=== PATIENT | male | born 1995 | race Caucasian/White ===

== ENCOUNTER 2017-05-06 23:37 | Emergency (ER) | payer SELFPAY ==
[~2017-05-06] VITALS: Ht 175.3 cm; Wt 95.3 kg
[~2017-05-06 23:37] MED LIST: LORTAB 5/500 501 TAB PO; NOMEDS; ULTRAM50 MG PO
[2017-05-06 23:39] VITALS: BP 166/104
[2017-05-07 00:03] LABS: HEMOGLOBIN 16.7 g/dL (14.1-18.0); LYMPH # 4.5 K/mm3 (0.7-4.5); LYMPH % 46.8 % (10-50)
--- OUTSIDE RECORDS SUMMARY | 2017-05-31 16:52 | External Medical Summary Rpt ---
Author Author , JOSELUIS Organization [employer] Address Unknown Phone [email or web address] Care Team Providers Care Wire Mesh Knitter Name Role Phone VERITO ZIMMERMAN, Unavailable Unavailable VERITO ZIMMERMAN CHRISTINA L, Unavailable Unavailable ANGELO RIOS MICHAEL A, Unavailable Unavailable SERGIO LEGER BRANDON T, Unavailable Unavailable NADIA MARKS, TERESITA Unavailable Unavailable GRE LOR MASSEY Unavailable Unavailable R, BRYSON HARIGOVINDA R NESHA ZENON, Unavailable Unavailable NESHA ZENON [facility], [employer], [employer] Unavailable Unavailable [facility] CRISTIN L[facility]P. Unavailable Unavailable GENE MIGUEL, FOSTER Unavailable Unavailable IVONNE GORDON Unavailable Unavailable [facility] Unavailable Unavailable CENTER, [facility] Unavailable Unavailable CENTER, [facility] Unavailable Unavailable INC, [facility] Unavailable Unavailable [facility] TAMIKO, DANNY, TAMIKO, Unavailable Unavailable [facility] Unavailable Unavailable [facility], [facility] BLAINE PALACIOS, , Unavailable Unavailable [facility] Un[facility], Unavailable Unavailable [facility] MITCHELL KILLIAN, Unavailable Unavailable MITCHELL KILLIAN GRE, Unavailable Unavailable DANIA GRE DANIA GRE, Unavailable Unavailable DANIA GRE [facility] Unavailable Unavailable SERVICES, [facility] Unavailable Unavailable SERVICES, [facility] ANNIKA ADDISON, Unavailable Unavailable ANNIKA ADDISON JOHN M, Unavailable Unavailable HALIE CARIAS RONALD L, Unavailable Unavailable OLENA WILSON DENIS DARRION, DENIS Unavailable Unavailable DARRION DENISCARLTON MAIER DENIS Unavailable Unavailable DARRION PETYARIEL MIGUEL PETTELisa Unavailable Unavailable [id number], Unavailable Unavailable [id number] Unavailable Unavailable [id number] [address] [id number], [facility] [id number] # [id number] ROSELYN CHAVEZ, Unavailable Unavailable ROSELYN CHAVEZ MARIA, Unavailable Unavailable DELPHINE GOLD [facility], Unavailable Unavailable [facility], Unavailable Unavailable YAEL ROSE [facility] Unavailable Unavailable #591, [facility] Purpose Continuity of Care Document - 08-04-2009 through 2016 Problems Code Diagnosis DOS Provider Status V5409 OTH 12-25-2014 [facility] INTERNAL FIXATION DEVICE V5489 OTHER 12-25-2014 [facility] AFTERCARE 74840 CLOSED 12-11-2014 [facility] OTHER&UNSPE C PART BODY MANDIBLE 21837 CLOSED 12-10-2014 [facility] OF SERV MULTIPLE FOUNDATION SITES OF MANDIBLE 25630 JAW PAIN 12-09-2014 [facility] 76831 CLOSED 12-09-2014 [place] FRA[facility]URE OF MEDICAL IMAGING ASS UNSPECIFIED SITE OF MANDIBLE 8028 OTHER 12-09-2014 [place] FACIAL [facility] BONES [facility] CLOSED FRACTURE 8082 CLOSED 12-09-2014 [place] FRA[facility]URE OF MEDICAL PUBIS [facility]ING [facility] 920 CONTUSION 12-09-2014 [place] OF [facility]ACE [facility] SCALP AND IMAGING ASS NECK EXCEPT EYE 85827 OTHER FOOT 01-05-2012 [facility] 92036 PAIN IN 11-01-2011 [place] JOINT, MEDICAL FOREARM [facility] 08227 SPRAIN AND 11-01-2011 [facility] STRAIN OF [facility] UNSPECIFIED INC SITE OF WRIST 9593 INJURY 11-01-2011 [facility] OTHER&UNSPE EMERGENCY CIFIED SERVICES [facility]OW FOREARM&WRI ST 9599 INJURY 11-01-2011 [place] OTHER AND MEDICAL UNSPECIFIED IMAGING ASS UNSPECIFIED SITE V069 NEED PROPH 10-07-2011 [facility] VACCINATION HEALTH W/UNSPEC CENTER COMB VACCINE 23065 FEVER 06-18-2010 [place] UNSPECIFIED [facility]ING [facility] 00348 NAUSEA WITH 06-18-2010 [facility] 21803 ABDOMINAL 06-18-2010 [facility] PAIN, EMERGENCY UNSPECIFIED SERVICES SITE 28072 ABDOMINAL 06-18-2010 [facility] PAIN, [facility] GENERALIZED INC 5368 DYSPEPSIA&O 06-13-2010 ADEEL MAIER THER SPEC DISORDERS FUNCTION STOMACH 3671 MYOPIA 06-10-2010 [facility] GRE 51713 SPRAIN AND 11-17-2009 [place] [facility] STR[facility] OF SERV INTERPHALAN FOUNDATIO GEAL OF HAND 15604 UNSPECIFIED 10-28-2009 [facility] DERANGEMENT OF HAND JOINT V5849 OTHER 10-28-2009 [place] [facility] SPECIFIED SERV AFTERCARE FOUNDATIO FOLLOWING SURGERY V5412 AFTERCARE 10-03-2009 [place] [facility] TRAUMATIC [facility]OUND[facility] FRACTURE LOWER ARM 68519 OTHER ACUTE 08-20-2009 [place] [facility] POSTOPERATI [facility]OUND[facility] VE PAIN 67998 OTHER 08-20-2009 [place] [facility] CLOSED SERV FRACTURES FOUNDATIO OF DISTAL END OF RADIUS 34195 CLOSED 08-18-2009 [facility] FRACTURE OF OF [facility] OF RADIUS WITH ULNA E8849 OTHER 08-04-2009 [place] [facility] ACCIDENTAL [facility] FALL FROM FOUNDATIO ONE LEVEL TO ANOTHER V537 FITTING AND 08-04-2009 [place] [facility] ADJUSTMENT [facility] OF [facility]OUNDATIO ORTHOPEDIC DEVICE Z53.20 PROC/TRTMT NOT CRD OUT BEC PT DECISION FOR UNSP REASONS Medications Na ND Rx Da Fi Fi Am Da Di Ph RX Ph St me C No te ll ll ou ys ag ar # ys at rm s nt no ma ic us Or Da si cy ia de te s n re d RA 00 10 10 60 30 RI 85 FO Ac NI 17 -2 -[address] ti TI 24 8- 8- 00 57 ER ve DI 35 20 20 AI NE 74 10 10 D JA 9 PH ME 15 AR S 0 MA M MG CY TA 03 BL 93 ET 8 # 03 93 ON 68 10 10 1 12 30 RI 85 FO Ac DA 46 -2 -[address] ti NS 20 8- 8- 00 58 ER ve ET 15 20 20 AI RO 71 10 10 D JA N 3 PH ME OD AR S T MA M 4 CY MG 03 TA 93 BL 8 ET # 03 93 00 03 03 60 10 RI 82 HO Ac 40 -0 -0 .0 TE 47 RS ti 60 9- 9- 00 21 TM ve 35 20 20 AI AN 80 10 10 D N 1 PH KAYE AR AN MA NA CY 03 93 8 # 03 93 CE 00 02 02 00 40 10 RI 82 OW Ac PH 14 -1 -2 .0 TE 12 EN ti AL 39 2- 6- 00 64 S ve EX 89 20 20 AI KAYE IN 70 10 10 D SH 1 PH UA 50 AR B 0 M MG #3 93 CA 8 PS UL E 00 01 01 00 30 10 RI 81 BR Ac 40 -1 -2 .0 TE 74 UC ti 60 5- 8- 00 26 E ve 35 20 20 AI BR 70 10 10 D AN 5 PH DO AR N M T #3 93 8 00 12 01 00 41 10 RI 81 BR Ac 40 -3 -1 .0 TE 52 UC ti 60 0- 4- 00 73 E ve 35 20 20 AI BR 80 09 10 D AN 1 PH DO AR N M T #3 93 8 OX 00 12 12 00 40 3 WA 22 No Ac YC 40 -1 -3 .0 L- 17 t ti OD 60 4- 1- 00 MA 17 Av ve ON 51 20 20 RT 8 ai E- 20 09 09 la AC 1 PH bl ET AR e AM MA IN CY OP HE #5 N 91 5- 32 5 Immunization Name Date Rout CVX Reac Dose Comm Prov Is Faci e tion ent ider Refu lity Give sed n MCV4 02- 114 Meni RENE No RENE 6-20 brett DELFINA DELFINA ALCANTARA 12 occu CO CO CWY s HEAL HEAL CONJ vacc TH TH ine CENT CENT VACC admi ER ER nist GRPS ered ; ACYW form -135 ulat IM ion USE not spec ifie d. MCV4 02- 136 Meni RENE No RENE 6-20 brett DELFINA DELFINA ALCANTARA 12 occu CO CO CWY s HEAL HEAL CONJ vacc TH TH ine CENT CENT VACC admi ER ER nist GRPS ered ; ACYW form -135 ulat IM ion USE not spec ifie d. NIXON 02- 21 RENE No RENE VACC 6-20 DELFINA DELFINA INE 12 CO CO LIVE HEAL HEAL FOR TH TH CENT CENT SUBC ER ER UTAN EOUS USE Procedures Procedure DOS Code Location Performer Comment ORTHOPANT 90356 [facility] 5 Y Y [facility] OPTX COMP 04050 CHAI YAEL 5 MEDICAL ROSE [place] SERV R FX CALL CENTER SPECIALIST FOUNDATIO APPR N W/INT FIXATION ANESTHESI 56598 CHAI TERESITA A FACIAL 5 MEDICAL GRE BONES OR SERVICES SKULL NOS RADEX 89534 [facility] 5 MEDICAL ZENON BONES IMAGING COMPLETE ASS MINIMUM 3 VIEWS ORTHOPANT 71018 [facility] OGRAM 5 [place]ICAL [place] [address] [place] NESHA MAXILLOFA 5 MEDICAL ZENON CIAL W/O IMAGING CONTRAST ASS MATERIAL RADIOLOGI 79983 [place] NESHA C 5 MEDICAL ZENON EXAMINATI IMAGING ON ASS MANDIPLE PRTL <4 VIEWS RADEX 82676 [facility] WRIST 2 MEDICAL MEDICAL COMPLETE IMAGING IMAGING MINIMUM 3 ASS ASS VIEWS WRIST L3908 [facility] 2 ORTHOSIS EXT CONTROL COCK-UP PREFAB NIXON 57829 [facility] VACCINE 2 [facility] CENTER SUBCUTANE OUS USE MCV4 93790 [facility] MENACWY 2 [facility] VACC CENTER CENTER GRPS ACYW-135 IM USE URNLS DIP 50606 [facility] STICK/TAB INC INC LET REAGENT AUTO MICROSCOP Y BLOOD 82024 [facility] COUNT 0 [facility] COMPLETE INC INC AUTO&[place] [address] [facility] AMYLASE 0 [place] [address] [facility] LIPASE 0 [facility] INC INC COMPREHEN 66891 [facility] SIVE 0 [facility] METABOLIC INC INC PANEL RADIOLOGI 29482 [place] NESHA C EXAM 0 MEDICAL ZENON CHEST 2 IMAGING VIEWS ASS FRONTAL&L ATERAL DETERMINA 33579 [facility] TION 0 GRE GRE REFRACTIV E STATE OPHTH 10920 [facility] 0 GRE GRE XM&EVAL COMPRE NEW PT 1/> VST WRIST L3807 [facility] HAND 0 FINGR ORTHOS W/O JNT PREFAB CSTM FIT APPLICATI 18537 CHAI CHAVEZ, ON CAST 0 MEDICAL ROSELYN ELBOW SERV A FINGER FOUNDATIO SHORT ARM SINGLE 67728 [place] CONSTANTIN NERVE 0 MEDICAL MITCHELL C BLOCK SERV INJECTION FOUNDATIO ARM NERVE INJECTION J1885 [facility] UNIVERSIT 0 Y Y KETOROLAC [facility] TROMETHAM INE PER [address] IN[address] [facility] FENTANYL 0 Y Y CITRATE [facility] 0.[address] [facility] TRNSPLJ/T 0 Y Y R [facility] FLXR/XTNS R F/ARM&/WR ST 1 EA TDN TR/TRNSPL 84584 [place] KATHY, TDN 0 MEDICAL ROSELYN CARP/MTCR SERV A PL HAND FOUNDATIO W/O FR GRF EA TDN INJECTION J2405 [facility] 0 Y Y [facility] ON HCL PER [address] IN[address] [facility] 0 Y Y [facility] NE HYDROCHLO RIDE [address] IN[address] [facility] 0 Y Y CEFAZOLIN [facility] SODIUM [address] IN[address] [facility] 0 Y Y MIDAZOLAM [facility] HCL PER [address] [facility] LACTATE 0 Y Y INFUSION [facility] UP TO 1000 CC ANES 83333 [place] JULIANE, NERVE 0 MEDICAL ANGELO MUSCLE SERVICES L TDN FASCIA&BU RSA FOREARM WRIST RADEX 39991 [place] BRYSON, WRIST 2 0 MEDICAL HARJACKIEVIN VIEWS SERV DA R FOUNDATIO INJECTION J2550 [facility] 9 Y Y [facility] H[facility] UP TO [address] [facility] RAD 9 Y Y X-ARTIC [facility] FX/EPIPHY SL SEP FLUOROSCO 99606 [facility] PY SPX >1 9 Y Y HOUR [facility] PHYS/QHP TIME INJECTION J0170 [facility] 9 Y Y ADRENALIN [facility] EPINEPHRI NE UP 1 ML AMPULE INJECTION J0330 [facility] 9 Y Y SUCCINYLC [facility] HOLINE CHLORIDE UP TO [address] IN[address] [facility] 9 Y Y [facility] ON HCL PER 1 MG ANES 18335 [place] TAMIKO, ARTHRS/EN 9 MEDICAL DAQUAN-PASHTO DSCPY SERVICES DSTL RADIUS ULNA/WRIS T/HAND INJECTION J3010 [facility] FENTANYL 9 Y Y CITRATE [facility] 0.1 MG INJECTION 35080 CHAI WILSON, 9 MEDICAL OLENA [place] ANESTHETI SERV C AGENT FOUNDATIO AXILLARY NERVE INITIAL 94998 CHAI WILSON, INPATIENT 9 MEDICAL OLENA [place] CONSULT SERV NEW/ESTAB FOUNDATIO PT [address] [facility] MORPHINE 9 Y Y SULFATE [facility] UP TO [address] [facility] 9 Y Y MIDAZOLAM [facility] HCL PER [address] IN[address] [facility] ATROPINE 9 Y Y SULFATE [facility] UP TO 0.[address] [facility] 9 Y Y CEFAZOLIN [facility] SODIUM [address] IN[address] [facility] 9 Y Y ROPIVACAI [facility] NE HYDROCHLO RIDE [address] [facility] [place] ELSIE, WRIST 2 9 Y OF [facility] RADEX [address] [facility] [place] ELSIE, WRIST 2 9 Y OF [facility] APPLICATI 78860 CHAI ADDISON ON CAST 9 MEDICAL ANNIKA SHOULDER SERV HAND LONG FOUNDATIO ARM RADEX 69856 [place] PHILIP, WRIST 9 MEDICAL BLAINE [place] COMPLETE SERV MINIMUM [address]OUNDAT[facility] [address] [facility] PROPH/DX 9 Y Y NJX IV HOSPITAL HOSPITAL PUSH SINGLE/1S T SBST/DRUG MODERATE 30607 SAMIRA SALCEDO 9 EMERGENCY HALIE [facility] SAME SERVICES PHYS/QHP 5/>YRS ASSOCIATE INIT 30 S MIN RADEX 73400 [place] PHIL[place], HAND 9 KILLIAN [place] MINIMUM 3 SERV VIEWS FOUNDATIO RHYTHM 65074 DANIA CARIAS ECG 1-3 9 EMERGENCY HALIE [employer] LEADS SERVICES INTERPRET ATION & ASSOCIATE REPRT ON S CLTX DSTL 93950 DANIA CARIAS RDL 9 EMERGENCY HALIE [place] FX/EPIPHY SERVICES SL SEP W/MANJ ASSOCIATE WHEN PERF S RADEX 01300 [facility] FOREARM 2 9 Y Y VIEWS [facility] RADEX 63498 [place] LEGER, WRIST 9 MEDICAL JOSELITO COMPLETE SERV MINIMUM 3 FOUNDATIO VIEWS NONINVASI 57364 [facility] VE 9 Y Y EAR/PULSE [facility] OXIMETRY SINGLE DETER Encounters Encounter Start End Date Code Location Performer Type Date [facility] UNIVERS - 5 5 Y [facility] T OFFICE [address] [facility] 5 5 MEDICAL GOGO T NEW SERV MINUTES FOUNDATIO N OFFICE 63543 [facility]ERN [facility] 2 2 [facility] MINUTES EMERGENCY 47349 FERN 2 2 MEM HOSP DEPARTMEN INC T VISIT LOW/MODER SEVERITY HOSPITAL FERN - [address] [facility] OUTPATIEN [facility] T EMERGENCY 29347 DANIA NAJERA 2 2 EMERGENCY EMERGENCY DEPARTMEN SERVICES SERVICES T VISIT HIGH/URGE NT SEVERITY EMERGENCY 64554 DANIA MILLS DEPT 0 0 EMERGENCY JAM VISIT SERVICES HIGH SEVERITY& THREAT [facility] FERN - [address] [facility]EN [facility] T EMERGENCY [address] [facility] DEPARTMEN INC T VISIT MODERATE SEVERITY OFFICE [address] [facility] 0 0 DARRION MAIER T VISIT 15 MINUTES HOSPITAL UNIVERSIT - 0 0 Y [facility] T OFFICE 03526 CHAI CHAVEZ OUTPATIEN 0 0 MEDICAL ROSELYN T VISIT SERV A 15 FOUNDATIO [facility] UNIVERSIT - 0 0 Y [facility] UNIVERS[facility] - 0 0 Y [facility] UNIVERSIT - 9 9 Y [facility] UN[facility] - 9 9 Y [facility] T OFFICE 47293 [facility]ON [facility] 9 9 ANNIKA DAILY VISIT SERV 10 FOUNDATIO MINUTES OFFICE 86703 CHAI ADDISON CONSULTAT 9 9 MEDICAL ANNIKA ION SERV NEW/ESTAB FOUNDATIO PATIENT [address] [facility] [place] - 9 9 Y [facility] T HOSPITAL UNIVERSIT - 9 9 Y [facility] T EMERGENCY [address] [facility] [place] 9 9 Y [facility] T VISIT HIGH/URGE NT SEVERITY EMERGENCY 12330 DANIA CARIAS, DEPT 9 9 EMERGENCY [facility] VISIT SERVICES HIGH SEVERITY& ASSOCIATE THREAT S FUN EMERGENCY 98812 CHAI GOLD, 9 9 MEDICAL [facility] SERV T VISIT FOUNDATIO MODERATE SEVERITY
--- OUTSIDE RECORDS SUMMARY | 2017-05-31 16:52 | External Medical Summary Rpt ---
Author Author , JOSELUIS Organization [employer] Address Unknown Phone [email or web address] Care Team Providers Care Records Administrator Name Role Phone VERITO ZIMMERMAN, Unavailable Unavailable VERITO ZIMMERMAN CHRISTINA L, Unavailable Unavailable ANGELO RIOS MICHAEL A, Unavailable Unavailable SERGIO LEGER BRANDON T, Unavailable Unavailable NADIA MARKS, TERESITA Unavailable Unavailable GRE LOR MASSEY Unavailable Unavailable R, BRYSON HARIGOVINDA R NESHA ZENON, Unavailable Unavailable NESHA ZENON [employer] Unavailable Unavailable [facility] CRISTIN L[facility]P. Unavailable Unavailable GENE MIGUEL, FOSTER Unavailable Unavailable IVONNE GORDON Unavailable Unavailable [facility] Unavailable Unavailable CENTER, [facility] Unavailable Unavailable CENTER, [facility] Unavailable Unavailable INC, [facility] Unavailable Unavailable [facility], [facility] TAMIKO, DANNY, TAMIKO, Unavailable Unavailable [facility] Unavailable Unavailable IM[facility]ING [facility], [facility] BLAINE PALACIOS, , Unavailable Unavailable [facility] [place] [facility] Un[facility], Unavailable Unavailable [facility] MITCHELL KILLIAN, Unavailable Unavailable MITCHELL KILLIAN GRE, Unavailable Unavailable DANIA GRE DANIA GRE, Unavailable Unavailable DANIA GRE [facility] Unavailable Unavailable SERVICES, [facility] Unavailable Unavailable SERVICES, [facility] ANNIKA ADDISON, Unavailable Unavailable ANNIKA ADDISON JOHN M, Unavailable Unavailable HALIE CARIAS RONALD L, Unavailable Unavailable OLENA WILSON DENIS DARRION, DENIS Unavailable Unavailable DARRION DENISCARLTON MAIER DENIS Unavailable Unavailable DARRION PETYARIEL MIGUEL PETTELisa Unavailable Unavailable [id number], Unavailable Unavailable [id number] Unavailable Unavailable [id number] [address] [id number], [facility] [address] [address] [id number] ROSELYN CHAVEZ, Unavailable Unavailable ROSELYN CHAVEZ MARIA, Unavailable Unavailable DELPHINE GOLD [facility], Unavailable [facility]available [facility], Unavailable Unavailable YAEL ROSE [facility] Unavailable Unavailable #591, [id number] Purpose Continuity of Care Document - 08-04-2009 through 2016 Problems Code Diagnosis DOS Provider Status V5409 OTH 12-25-2014 [facility] INVOLVING [facility]OUNDATION INTERNAL FIXATION DEVICE V5489 OTHER 12-25-2014 [facility] AFTERCARE 15539 CLOSED 12-11-2014 [facility] FRACTURE SERVICES OTHER&UNSPE C PART BODY MANDIBLE 05034 CLOSED 12-10-2014 [facility] FRACTURE OF SERV MULTIPLE FOUNDATION SITES OF MANDIBLE 25837 JAW PAIN 12-09-2014 [facility] 21722 CLOSED 12-09-2014 [place] FRACTURE OF MEDICAL IMAGING ASS UNSPECIFIED SITE OF MANDIBLE 8028 OTHER 12-09-2014 [place] FACIAL [facility] BONES [facility] CLOSED FRACTURE 8082 CLOSED 12-09-2014 [place] FRACTURE OF MEDICAL PUBIS [facility] 920 CONTUSION 12-09-2014 [place] OF [facility] MEDICAL SCALP AND IMAGING ASS NECK EXCEPT EYE 79674 OTHER FOOT 01-05-2012 [facility] SPRAIN AND [facility] 36663 PAIN IN 11-01-2011 [place] JOINT, MEDICAL FOREARM IMAGING ASS 11951 SPRAIN AND 11-01-2011 [facility] STRAIN OF [facility] UNSPECIFIED INC SITE OF WRIST 9593 INJURY 11-01-2011 [facility] OTHER&UNSPE EMERGENCY CIFIED SERVICES [facility]&WRI ST 9599 INJURY 11-01-2011 [place] OTHER AND MEDICAL UNSPECIFIED IMAGING ASS UNSPECIFIED SITE V069 NEED PROPH 10-07-2011 [facility] VACCINATION HEALTH W/UNSPEC CENTER COMB VACCINE 46904 FEVER 06-18-2010 [place] UNSPECIFIED MEDICAL IMAGING ASS 85368 NAUSEA WITH 06-18-2010 [facility] 75317 ABDOMINAL 06-18-2010 [facility] PAIN, EMERGENCY UNSPECIFIED SERVICES SITE 95776 ABDOMINAL 06-18-2010 [facility] PAIN, [facility] GENERALIZED INC 5368 DYSPEPSIA&O 06-13-2010 ADEEL MAIER THER SPEC DISORDERS FUNCTION STOMACH 3671 MYOPIA 06-10-2010 [facility] GRE 05578 SPRAIN AND 11-17-2009 [place] [facility] STRAIN OF SERV INTERPHALAN FOUNDATIO GEAL OF HAND 32849 UNSPECIFIED 10-28-2009 [facility] DERANGEMENT OF HAND JOINT V5849 OTHER 10-28-2009 [place] [facility] SPECIFIED SERV AFTERCARE FOUNDATIO FOLLOWING SURGERY V5412 AFTERCARE 10-03-2009 [place] [facility] HEAL[facility] TRAUMATIC FOUNDATIO FRACTURE LOWER ARM 38765 OTHER ACUTE 08-20-2009 [place] [facility] POSTOPERATI FOUNDAT[facility] VE PAIN 31903 OTHER 08-20-2009 [place] [facility] CLOSED SERV FRACTURES FOUNDATIO OF DISTAL END OF RADIUS 99105 CLOSED 08-18-2009 [facility] FRACTURE OF OF [facility] OF RADIUS WITH ULNA E8849 [...] Procedure DOS Code Location Performer Comment ORTHOPANT 29111 [facility] 5 Y Y [facility] OPTX COMP 71095 CHAI YAEL 5 MEDICAL ROSE MANDIBULA SERV R FX GUIDE DOG INSTRUCTOR FOUNDATIO APPR N W/INT FIXATION ANESTHESI 39204 CHAI TERESITA A FACIAL 5 MEDICAL GRE BONES OR SERVICES SKULL NOS RADEX 91365 [facility] MEDICAL ZENON BONES IMAGING COMPLETE ASS MINIMUM 3 VIEWS ORTHOPANT 50145 [facility] OGRAM 5 [place]ICAL [place] [address] [place] NESHA MAXILLOFA 5 MEDICAL ZENON CIAL W/O IMAGING CONTRAST ASS MATERIAL RADIOLOGI 08076 [place] NESHA C 5 MEDICAL ZENON EXAMINATI IMAGING ON ASS MANDIPLE PRTL <4 VIEWS RADEX 56467 [facility] WRIST 2 MEDICAL MEDICAL COMPLETE IMAGING IMAGING MINIMUM 3 ASS ASS VIEWS WRIST L3908 [facility] HAND 2 ORTHOSIS EXT CONTROL COCK-UP PREFAB NIXON 41778 [facility] VACCINE 2 [facility] LIVE FOR CENTER CENTER SUBCUTANE OUS USE MCV4 09783 [facility] MENACWY 2 [facility] V[facility] CENTER GRPS ACYW-135 IM USE URNLS DIP 72194 [facility] 0 [facility] STICK/TAB INC INC LET REAGENT AUTO MICROSCOP Y BLOOD 11880 [facility] COUNT 0 [facility] COMPLETE INC INC AUTO&[place] [address] [facility] AMYLASE 0 [place] [address] [facility] LIPASE 0 [facility] INC INC COMPREHEN 73659 [facility] SIVE 0 [facility] METABOLIC INC INC PANEL RADIOLOGI 51857 [place] NESHA C EXAM 0 MEDICAL ZENON CHEST 2 IMAGING VIEWS ASS FRONTAL&L ATERAL DETERMINA 08579 [facility] TION 0 GRE GRE REFRACTIV E STATE OPHTH 34092 [facility] 0 GRE GRE XM&EVAL COMPRE NEW PT 1/> VST WRIST L3807 [facility] HAND 0 FINGR ORTHOS W/O JNT PREFAB CSTM FIT APPLICATI 92553 CHAI CHAVEZ, ON CAST 0 MEDICAL ROSELYN ELBOW SERV A FINGER FOUNDATIO SHORT ARM SINGLE 59405 [place] CONSTANTIN NERVE 0 MEDICAL MITCHELL C BLOCK SERV INJECTION FOUNDATIO ARM NERVE INJECTION J1885 UNIVERSIT UNIVERSIT 0 Y Y KETOROLAC [facility] TROMETHAM INE PER 15 MG INJECTION J3010 [facility] FENTANYL 0 Y Y CITRATE [facility] 0.1 MG TDN 49695 [facility] TRNSPLJ/T 0 Y Y R [facility] FLXR/XTNS R F/ARM&/WR ST 1 EA TDN TR/TRNSPL 09706 [place] KATHY, TDN 0 MEDICAL ROSELYN CARP/MTCR SERV A PL HAND FOUNDATIO W/O FR GRF EA TDN INJECTION J2405 [facility] 0 Y Y [facility] ON HCL PER 1 MG INJECTION J2795 [facility] 0 Y [facility] NE HYDROCHLO RIDE 1 MG INJECTION J0690 [facility] 0 Y Y CEFAZOLIN [facility] SODIUM 500 MG INJECTION J2250 [facility] 0 Y Y MIDAZOLAM [facility] HCL PER 1 MG RINGERS J7120 [facility] LACTATE 0 Y Y INFUSION [facility] UP TO 1000 CC ANES 92050 [place] JULIANE, NERVE 0 MEDICAL ANGELO MUSCLE SERVICES L TDN FASCIA&BU RSA FOREARM WRIST RADEX 95358 [place] BRYSON, WRIST 2 0 MEDICAL HARJACKIEVIN VIEWS SERV DA R FOUNDATIO INJECTION J2550 [facility] 9 Y [facility] IN[facility] H[facility] UP TO 50 MG OPTX DSTL 95324 [facility] RAD 9 Y Y X-ARTIC [facility] FX/EPIPHY SL SEP FLUOROSCO 02352 [facility] PY SPX >1 9 Y Y HOUR [facility] PHYS/QHP TIME INJECTION J0170 [facility] 9 Y Y ADRENALIN [facility] EPINEPHRI NE UP 1 ML AMPULE INJECTION J0330 [facility] 9 Y Y SUCCINYLC [facility] HOLINE CHLORIDE UP TO 20 MG INJECTION J2405 [facility] 9 Y Y [facility] ON HCL PER 1 MG ANES 18533 [place] TAMIKO, ARTHRS/EN 9 MEDICAL [place] DSCPY SERVICES DSTL RADIUS ULNA/WRIS T/HAND INJECTION J3010 [facility] FENTANYL 9 Y Y CITRATE [facility] 0.1 MG INJECTION 85532 CHAI WILSON, 9 MEDICAL OLENA [place] ANESTHETI SERV C AGENT FOUNDATIO AXILLARY NERVE INITIAL 75170 CHAI WILSON, INPATIENT 9 MEDICAL OLENA [place] CONSULT SERV NEW/ESTAB FOUNDATIO PT 40 MIN INJECTION J2270 [facility] MORPHINE 9 Y Y SULFATE [facility] UP TO 10 MG INJECTION J2250 [facility] 9 Y Y MIDAZOLAM [facility] HCL PER 1 MG INJECTION J0460 [facility] ATROPINE 9 Y Y SULFATE [facility] UP TO 0.3 MG INJECTION J0690 [facility] 9 Y Y CEFAZOLIN [facility] SODIUM 500 MG INJECTION J2795 [facility] 9 Y Y ROPIVACAI [facility] NE HYDROCHLO RIDE 1 MG RADEX 25962 [facility] ELSIE, WRIST 2 9 Y OF [facility] RADEX 56967 [facility] ELSIE, WRIST 2 9 Y OF [facility] APPLICATI 28979 CHAI ADDISON ON CAST 9 MEDICAL ANNIKA SHOULDER SERV HAND LONG FOUNDATIO ARM RADEX 58312 [place] PHIILP, WRIST 9 MEDICAL BLAINE [place] COMPLETE SERV MINIMUM 3 FOUNDATIO VIEWS THER 14681 [facility] PROPH/DX 9 Y Y NJX IV HOSPITAL HOSPITAL PUSH SINGLE/1S T SBST/DRUG MODERATE 67211 SAMIRA SALCEDO 9 EMERGENCY HALIE [facility] SAME SERVICES PHYS/QHP 5/>YRS ASSOCIATE INIT 30 S MIN RADEX 06791 [place] PHILIP, HAND 9 KILLIAN [place] MINIMUM 3 SERV VIEWS FOUNDATIO RHYTHM 38557 DANIA CARIAS ECG 1-3 9 EMERGENCY HALIE [place] LEADS SERVICES INTERPRET ATION & ASSOCIATE REPRT ON S CLTX DSTL 99274 DANIA CARIAS RDL 9 EMERGENCY HALIE [place] FX/EPIPHY SERVICES SL SEP W/MANJ ASSOCIATE WHEN PERF S RADEX 09247 [facility] FOREARM 2 9 Y Y VIEWS [facility] RADEX 75708 [place] LEGER, WRIST 9 MEDICAL JOSELITO COMPLETE SERV MINIMUM 3 FOUNDATIO VIEWS NONINVASI 61150 [facility] VE 9 Y Y EAR/PULSE [facility] OXIMETRY SINGLE DETER Encounters Encounter Start End Date Code Location Performer Type Date [facility] UNIVERS - 5 5 Y [facility] T OFFICE 45463 [facility] 5 5 MEDICAL [place] T NEW SERV MINUTES FOUNDATIO N OFFICE 77808 [facility] 2 2 [facility] MINUTES EMERGENCY 01835 FERN 2 2 MEM HOSP DEPARTMEN INC T VISIT LOW/MODER SEVERITY HOSPITAL FERN - 2 2 [facility] T EMERGENCY 40137 DANIA NAJERA 2 2 EMERGENCY EMERGENCY DEPARTMEN SERVICES SERVICES T VISIT HIGH/URGE NT SEVERITY EMERGENCY 53980 DANIA MILLS DEPT 0 0 EMERGENCY JAM VISIT SERVICES HIGH SEVERITY& THREAT [facility] FERN - 0 0 [facility] EMERGENCY 44701 FERN 0 0 [facility] DEPARTMEN INC T VISIT MODERATE SEVERITY OFFICE 11865 [facility]EL DENIS [facility] 0 0 DARRION MAIER T VISIT 15 MINUTES HOSPITAL UNIVERSIT - 0 0 Y [facility] T OFFICE 38798 CHAI CHAVEZ OUTPATIEN 0 0 MEDICAL ROSELYN T VISIT SERV A 15 FOUNDATIO [facility] UNIVERSIT - 0 0 Y [facility] UNIVERSIT - 0 0 Y [facility] UNIVERSIT - 9 9 Y [facility] UNIVERSIT - 9 9 Y [facility] T OFFICE 80464 [facility]AI [facility] 9 9 ANNIKA DAILY VISIT SERV 10 FOUNDATIO MINUTES OFFICE 47855 CHAI ADDISON CONSULTAT 9 9 MEDICAL ANNIKA ION SERV NEW/ESTAB FOUNDATIO PATIENT 40 MIN HOSPITAL [facility] - 9 9 Y [facility] T HOSPITAL UNIVERSIT - 9 9 Y [facility] T EMERGENCY 37897 [facility] 9 9 Y [facility] T VISIT HIGH/URGE NT SEVERITY EMERGENCY 25068 DANIA CARIAS, DEPT 9 9 EMERGENCY [facility] VISIT SERVICES HIGH SEVERITY& ASSOCIATE THREAT S FUN EMERGENCY 40964 CHAI GOLD, 9 9 MEDICAL [facility] SERV T VISIT FOUNDATIO MODERATE SEVERITY
--- OUTSIDE RECORDS SUMMARY | 2017-05-31 16:53 | External Medical Summary Rpt ---
Author Author JOSELUIS Antunez, JOSELUIS Production Organization [employer] Address Unknown Phone Unavailable Results Acetaminophen [Mass/volume] in Unspecified specimen Observa Value Referen Units Interpr Notes Date tion ce etation Range Acetamino 10 - 30 ug/mL Low No Sep 15 phen informati 2017 [Mass/vol on in 11:52 PM ume] in source Unspecifi data ed specimen Comprehensive metabolic 2000 panel in Serum or Plasma Observa Value Referen Units Interpr Notes Date tion ce etation Range Albumin/G 1.1 - 1.8 No Normal No Sep 15 lobulin informati informati 2017 [Mass on in on in 11:52 PM ratio] in source source Serum or data data Plasma Albumin 3.4 - 5.0 gm/dL Normal No Sep 15 [Mass/vol informati 2017 ume] in on in 11:52 PM Serum or source Plasma data Alkaline 46 - 116 U/L Normal No Sep 15 phosphata informati 2017 se on in 11:52 PM [Enzymati source c data activity/ volume] in Serum or Plasma Bilirubin 0.2 - 1.0 mg/dL Normal No Sep 15 .total informati 2017 [Mass/vol on in 11:52 PM ume] in source Serum or data Plasma Urea 7 - 18 mg/dL Normal No Sep 15 nitrogen informati 2017 [Mass/vol on in 11:52 PM ume] in source Serum or data Plasma Calcium 8.5 - mg/dL Normal No Sep 15 [Mass/vol 10.1 informati 2017 ume] in on in 11:52 PM Serum or source Plasma data Chloride 98 - 107 mmoL/L Normal No Sep 15 [Moles/vo informati 2017 lume] in on in 11:52 PM Serum or source Plasma data Carbon 21.0 - mmoL/L Normal No Sep 15 dioxide, 32.0 informati 2017 total on in 11:52 PM [Moles/vo source lume] in data Serum or Plasma Creatinin 0.70 - mg/dL Normal No Sep 15 e 1.30 informati 2017 [Mass/vol on in 11:52 PM ume] in source Serum or data Plasma Creatinin 50 - 200 ML/MIN Normal No Sep 15 e renal informati 2017 clearance on in 11:52 PM source predicted data by Cockcroft -Gault formula Estimated >60 ML/MIN No REFERENCE Sep 15 informati RANGE: 2017 glomerula on in >60 11:52 PM r source ML/MIN/1. filtratio data 73 SQUARE n rate METERSIf (GF this patient is -A merican, then multiply theresult by 1.210. Globulin 1.3 - 3.2 gm/dL High No Sep 15 [Mass/vol informati 2016 ume] in on in 11:52 PM Serum source data Glucose 74 - 106 mg/dL High No Sep 15 [Mass/vol informati 2016 ume] in on in 11:52 PM Serum or source Plasma data Potassium 3.5 - 5.1 mmoL/L Normal No Sep 15 inform2016 [Moles/vo on in 11:52 PM lume] in source Serum or data Plasma Sodium 136 - 145 mmoL/L Normal No Sep 15 [Moles/vo informati 2017 lume] in on in 11:52 PM Serum or source Plasma data Aspartate 15 - 37 U/L Normal No Sep 15 inform2016 aminotran on in 11:52 PM sferase source [Enzymati data c activity/ volume] in Serum or Plasma Alanine 12 - 78 U/L Normal No Sep 15 aminotran inform2016 sferase on in 11:52 PM [Enzymati source c data activity/ volume] in Serum or Plasma Protein 6.4 - 8.2 gm/dL High No Sep 15 [Mass/vol informati 2016 ume] in on in 11:52 PM Serum or source Plasma data Salicylates [Mass/volume] in Serum or Plasma Observa Value Referen Units Interpr Notes Date tion ce etation Range Salicylat 2.8 - mg/dL Normal No Sep 15 es 20.0 informati 2016 [Mass/vol on in 11:52 PM ume] in source Serum or data Plasma CBC W Auto Differential panel in Blood Observa Value Referen Units Interpr Notes Date tion ce etation Range Basophils 0 - 0.2 K/MM3 Normal No Sep 15 inform2016 [#/volume on in 11:52 PM ] in source Blood by data Automated count Basophils 0.1 - 2.0 % Normal No Sep 15 /100 inform2016 leukocyte on in 11:52 PM s in source Blood by data Automated count Eosinophi 0.0 - 0.4 K/mm3 Normal No Sep 15 ls inform2016 [#/volume on in 11:52 PM ] in source Blood by data Automated count Eosinophi 0.1 - % Normal No Sep 15 ls/100 12.0 inform2016 leukocyte on in 11:52 PM s in source Blood by data Automated count Granulocy 1.3 - 8.0 K/mm3 Normal No Sep 15 katia inform2016 [#/volume on in 11:52 PM ] in source Blood by data Automated count Granulocy 37.0 - % Normal No Sep 15 katia/100 80.0 inform2016 leukocyte on in 11:52 PM s in source Blood by data Automated count Hematocri 42.0 - % Normal No Sep 15 t [Volume 52.0 informati 2016 on in 11:52 PM Fraction] source of Blood data Hemoglobi 14.1 - g/dL Normal No Sep 15 n 18.0 inform2016 [Mass/vol on in 11:52 PM ume] in source Blood data Lymphocyt 0.7 - 4.5 K/mm3 Normal No Sep 15 es inform 2017 [#/volume on in 11:52 PM ] in source Unspecifi data ed specimen by Automated count Lymphocyt 10 - 50 % Normal No Sep 15 es inform 2017 [#/volume on in 11:52 PM ] in source Unspecifi data ed specimen by Automated count Erythrocy 27 - 31.2 pg Normal No Sep 15 te mean inform2016 corpuscul on in 11:52 PM ar source hemoglobi data n [Entitic mass] Erythrocy 31.8 - g/dl Normal No Sep 15 te mean 35.4 inform2016 corpuscul on in 11:52 PM ar source hemoglobi data n concentra tion [Mass/vol ume] by Automated count Erythrocy 82.2 - fl Normal No Sep 15 te mean 97.8 inform2016 corpuscul on in 11:52 PM ar volume source [Entitic data volume] by Automated count Monocytes 0.1 - 1.0 K/mm3 Normal No Sep 15 2016 [#/volume on in 11:52 PM ] in source Blood by data Automated count Monocytes 1.7 - 9.3 % Normal No Sep 15 /100 informati 2017 leukocyte on in 11:52 PM s in source Blood by data Automated count Platelet 7.4 - fl Low No Sep 15 mean 10.4 inform2016 volume on in 11:52 PM [Entitic source volume] data in Blood by Automated count Platelets 142 - 424 K/mm3 Normal No Sep 15 informati 2016 [#/volume on in 11:52 PM ] in source Blood data Erythrocy 4.6 - 6.2 M/mm3 Normal No Sep 15 katia informati 2016 [#/volume on in 11:52 PM ] in source Amniotic data fluid Erythrocy 11.5 - % Normal No Sep 15 te 17.5 informati 2016 distribut on in 11:52 PM ion width source [Entitic data volume] by Automated count Leukocyte 4.8 - K/MM3 Normal No Sep 15 s 10.8 inform2016 [#/volume on in 11:52 PM ] in source Blood data Ethanol [Mass/volume] in Serum or Plasma Observa Value Referen Units Interpr Notes Date tion ce etation Range Ethanol 0 - 99 mg/dL High ANY Sep 15 [Mass/vol ALCOHOL > 2017 ume] in OR = 80 11:52 PM Serum or MG/DL IS Plasma CONSIDERE D LEGALLYIN TOXICATED [place]ER [place].
--- OUTSIDE RECORDS SUMMARY | 2017-05-31 16:53 | External Medical Summary Rpt ---
Author Author , JOSELUIS HUGGINS Address Unknown Phone Care Team Providers Care Enamel Dipper Name Role Phone VERITO ZIMMERMAN, Unavailable Unavailable VERITO ZIMMERMAN CHRISTINA L, Unavailable Unavailable ANGELO RIOS BRANDON T, Unavailable Unavailable NADIA MARKS, TERESITA Unavailable Unavailable GRE BRYSON, HARIGOVINDA Unavailable Unavailable R, BRYSON, HARIGOVINDA R NESHA ZENON, Unavailable Unavailable NESHA ZENON [facility] Unavailable Unavailable [facility] Unavailable Unavailable FOSTER MYRIAM, FOSTER Unavailable Unavailable JAM IVONNE KYLE Unavailable Unavailable [facility] Unavailable Unavailable CENTER, [facility] Unavailable Unavailable CENTER, [facility] Unavailable Unavailable INC, [facility] Unavailable Unavailable HOSPITAL, [facility], DAQUAN-FRISIAN, TAMIKO, Unavailable Unavailable [facility] Unavailable Unavailable IMAGING ASS, [facility] BLAINE PALACIOS, , Unavailable Unavailable [facility], Unavailable [facility]available [facility] MITCHELL KILLIAN, Unavailable Unavailable MITCHELL KILLIAN GRE, Unavailable Unavailable DANIA NAJERA GRE, Unavailable Unavailable DANIA GRE [facility] Unavailable Unavailable SERVICES, [facility] Unavailable Unavailable SERVICES, [facility] ANNIKA ADDISON, Unavailable Unavailable ANNIKA ADDISON JOHN M, Unavailable Unavailable HALIE CARIAS RONALD L, Unavailable Unavailable OLENA WILSON NICHOLS Unavailable Unavailable ADEEL GUEVARA Unavailable Unavailable LARRY URIAS Unavailable Unavailable JAM [id number], Unavailable Unavailable [id number] Unavailable Unavailable [id number] [id number], [facility] [id number] [id number] [place], ROSLEYN A, Unavailable Unavailable ROSELYN CHAVEZ MARIA, Unavailable Unavailable DELPHINE GOLD [facility], Unavailable Unavailable [facility] YAEL ROSE, Unavailable Unavailable YAEL ROSE [facility] Unavailable Unavailable #591, [facility] Purpose Continuity of Care Document - 08-04-2009 through 2016 Problems Code Diagnosis DOS Provider Status V5409 OTH 12-25-2014 [facility] INTERNAL FIXATION DEVICE V5489 OTHER 12-25-2014 [facility] AFTERCARE 42130 CLOSED 12-11-2014 [facility] OTHER&UNSPE C PART BODY MANDIBLE 90887 CLOSED 12-10-2014 [facility] OF SERV MULTIPLE FOUNDATION SITES OF MANDIBLE 31246 JAW PAIN 12-09-2014 [facility] 82851 CLOSED 12-09-2014 [place] FRACTURE OF MEDICAL IMAGING ASS UNSPECIFIED SITE OF MANDIBLE 8028 OTHER 12-09-2014 [place] FACIAL MEDICAL BONES IMAGING ASS CLOSED FRACTURE 8082 CLOSED 12-09-2014 [place] FRACTURE OF MEDICAL PUBIS IMAGING ASS 920 CONTUSION 12-09-2014 [place] OF FACE MEDICAL SCALP AND IMAGING ASS NECK EXCEPT EYE 63592 OTHER FOOT 01-05-2012 [facility] [place] [facility] 44141 PAIN IN 11-01-2011 [place] JOINT, MEDICAL FOREARM IMAGING ASS 87969 SPRAIN AND 11-01-2011 [facility] STRAIN OF [facility] UNSPECIFIED INC SITE OF WRIST 9593 INJURY 11-01-2011 D[facility] OTHER&UNSPE EMERGENCY CIFIED SERVICES [facility] FOREARM&WRI ST 9599 INJURY 11-01-2011 [place] OTHER AND MEDICAL UNSPECIFIED IMAGING ASS UNSPECIFIED SITE V069 NEED PROPH 10-07-2011 [facility] VACCINATION HEALTH W/UNSPEC CENTER COMB VACCINE 17849 FEVER 06-18-2010 [place] UNSPECIFIED [facility]ICAL IMAGING ASS 12341 NAUSEA WITH 06-18-2010 [facility] 47244 ABDOMINAL 06-18-2010 [facility] PAIN, EMERGENCY UNSPECIFIED SERVICES SITE 12348 ABDOMINAL 06-18-2010 [facility] PAIN, [facility] GENERALIZED INC 5368 DYSPEPSIA&O 06-13-2010 ADEEL MAIER THER SPEC DISORDERS FUNCTION STOMACH 3671 MYOPIA 06-10-2010 [facility] GRE 17435 SPRAIN AND 11-17-2009 [facility] STR[facility] OF SERV INTERPHALAN FOUNDATIO GEAL OF HAND 57819 UNSPECIFIED 10-28-2009 [facility] DERANGEMENT OF HAND JOINT V5849 OTHER 10-28-2009 [facility] SPECIFIED SERV AFTERCARE FOUNDATIO FOLLOWING SURGERY V5412 AFTERCARE 10-03-2009 [facility] TRAUMATIC [facility] FRACTURE LOWER ARM 90759 OTHER ACUTE 08-20-2009 [facility] POSTOPERATI [facility] VE PAIN 29208 OTHER 08-20-2009 [place] [facility] CL[facility]ED [facility] FRACTURES FOUNDATIO OF DISTAL END OF RADIUS 84425 CLOSED 08-18-2009 [place] FRACTURE OF OF [place] LOWER [facility] OF RADIUS WITH ULNA E8849 OTHER 08-04-2009 [facility] ACCIDENTAL [facility] FALL FROM FOUNDATIO ONE LEVEL TO ANOTHER V537 FITTING AND 08-04-2009 [facility] ADJUSTMENT SERV OF F[facility] ORTHOPEDIC DEVICE Medications Na ND Rx Da Fi Fi [...] Procedure DOS Code Location Performer Comment ORTHOPANT 51910 [facility] 5 Y Y [facility] HOSP[facility] ANESTHESI [address] [place] A FACIAL 5 MEDICAL GRE BONES OR SERVICES SKULL NOS OPTX COMP 17328 [place] YAEL 5 MEDICAL ROSE MANDIBULA SERV R FX DIRECTOR OF HEALTH EDUCATION FOUNDATIO APPR N W/INT FIXATION RADEX 80390 [place] NESHA FACIAL 5 MEDICAL ZENON BONES IMAGING COMPLETE ASS MINIMUM 3 VIEWS RADIOLOGI 18870 [place] NESHA C 5 MEDICAL ZENON EXAMINATI IMAGING ON ASS MANDIPLE PRTL <[address] [place] [address] [facility] MEDICAL ZENON CIAL W/O IMAGING CONTRAST ASS MATERIAL ORTHOPANT 21211 [facility] OGRAM 5 MEDICAL MEDICAL IMAGING IMAGING ASS ASS WRIST L3908 [facility] HAND 2 ORTHOSIS EXT CONTROL COCK-UP PREFAB RADEX 40672 [facility] WRIST 2 [facility] COMPLETE INC INC MINIMUM 3 VIEWS MCV4 27796 [facility] MENACWY 2 [facility] CENTER GRPS ACYW-135 IM USE NIXON 91207 [facility] VACCINE 2 [facility] LIVE FOR [place] [address] [facility] AMYLASE 0 [place] [address] [facility] LIPASE 0 [facility] INC INC RADIOLOGI 38940 [place] NESHA C EXAM 0 MEDICAL ZENON CHEST 2 IMAGING VIEWS ASS FRONTAL&L ATERAL BLOOD 27117 [facility] COUNT 0 [facility] COMPLETE INC INC AUTO&AUTO DIFRNTL WBC URNLS DIP 29780 [facility] 0 [facility] STICK/TAB INC INC LET REAGENT AUTO MICROSCOP Y COMPREHEN 43509 [facility] SIVE 0 [facility] METABOLIC INC INC PANEL DETERMINA 49480 D[facility] PITTMANALL TION 0 GRE GRE REFRACTIV E STATE OPHTH 55701 [facility] MATTEL [facility] 0 GRE GRE XM&EVAL COMPRE NEW PT 1/> VST WRIST L3807 [facility] HAND 0 FINGR ORTHOS W/O JNT PREFAB CSTM FIT APPLICATI 34101 [place] KATHY, ON CAST 0 MEDICAL ROSELYN ELBOW SERV A FINGER FOUNDATIO SHORT ARM INJECTION J1885 [facility] 0 Y Y KETOROLAC [facility] TROMETHAM INE PER 15 MG INJECTION J3010 [facility] FENTANYL 0 Y Y CITRATE [facility] 0.1 MG TDN 01441 [facility] TRNSPLJ/T 0 Y Y R [facility] FLXR/XTNS R F/ARM&/WR ST 1 EA TDN TR/TRNSPL 78930 [place] KATHY, TDN 0 MEDICAL ROSELYN CARP/MTCR SERV A PL HAND FOUNDATIO W/O FR GRF EA TDN SINGLE 32904 [place] CONSTANTIN, NERVE 0 MEDICAL MITCHELL C BLOCK SERV INJECTION FOUNDATIO ARM NERVE INJECTION J2405 [facility] 0 Y Y [facility] ON HCL PER 1 MG ANES 74986 [place] JULIANE, NERVE 0 MEDICAL ANGELO MUSCLE SERVICES L TDN FASCIA&BU RSA FOREARM WRIST INJECTION J0690 [facility] 0 Y Y CEFAZOLIN [facility] SODIUM 500 MG INJECTION J2795 [facility] 0 Y [facility] NE HYDROCHLO RIDE 1 MG RINGERS J7120 [facility] LACTATE 0 Y Y INFUSION [facility] UP TO 1000 CC INJECTION J2250 [facility] 0 Y Y MIDAZOLAM [facility] HCL PER 1 MG RADEX 86955 [facility] WRIST 2 0 Y Y [facility] INJECTION J2550 [facility] 9 Y Y [facility] INE HCL UP TO 50 MG OPTX DSTL 89530 [place] SELINA, RADL 9 MEDICAL NADIA T X-ARTIC SERV FX/EPIPHY FOUNDATIO SL SEP INJECTION 36688 [place] KATIE, 9 MEDICAL OLENA L ANESTHETI SERV C AGENT FOUNDATIO AXILLARY NERVE FLUOROSCO 71401 [facility] PY SPX >1 9 Y Y HOUR [facility] PHYS/QHP TIME INJECTION J0170 [facility] 9 Y Y ADRENALIN [facility] EPINEPHRI NE UP 1 ML AMPULE INJECTION J0330 [facility] 9 Y Y SUCCINYLC [facility] HOLINE CHLORIDE UP TO 20 MG INJECTION J2405 [facility] 9 Y Y [facility] ON HCL PER 1 MG ANES 62253 [place] TAMIKO, ARTHRS/EN 9 MEDICAL DAQUAN-FRISIAN DSCPY SERVICES DSTL RADIUS ULNA/WRIS T/HAND INJECTION J3010 [facility] FENTANYL 9 Y Y CITRATE [facility] 0.1 MG INITIAL 06823 CHAI WILSON, INPATIENT 9 MEDICAL OLENA L CONSULT SERV NEW/ESTAB FOUNDATIO PT 40 MIN INJECTION J2270 [facility] MORPHINE 9 Y Y SULFATE [facility] UP TO 10 MG INJECTION J2795 [facility] 9 Y Y ROPIVACAI [facility] NE HYDROCHLO RIDE 1 MG INJECTION J2250 [facility] 9 Y Y MIDAZOLAM [facility] HCL PER 1 MG INJECTION J0460 [facility] ATROPINE 9 Y Y SULFATE [facility] UP TO 0.3 MG INJECTION J0690 [facility] 9 Y Y CEFAZOLIN [facility] SODIUM 500 MG RADEX 75502 [facility] ELSIE, WRIST 2 9 Y OF VERITO VIEWS [facility] RADEX 16912 [facility] WRIST [address] [facility] APPLICATI 52825 CHAI ADDISON ON CAST 9 MEDICAL , ANNIKA SHOULDER SERV HAND LONG FOUNDATIO ARM RADEX 80966 CHAI PHILIP, WRIST 9 MEDICAL BLAINE G COMPLETE SERV MINIMUM 3 FOUNDATIO VIEWS THER 64904 [facility] PROPH/DX 9 Y Y NJX IV [facility] PUSH SINGLE/1S T SBST/DRUG CLTX DSTL 64477 DANIA CARIAS RDL 9 EMERGENCY HALIE Negron FX/EPIPHY SERVICES SL SEP W/MANJ ASSOCIATE WHEN PERF S RADEX 01121 CHAI PHILIP, FOREARM 2 9 MEDICAL BLAINE G VIEWS SERV FOUNDATIO RADEX 68509 [facility] WRIST 9 Y Y [facility] MINIMUM 3 VIEWS MODERATE 26194 GELACIO SALCEDOATJ 9 EMERGENCY HALIE Negron SAME SERVICES PHYS/QHP 5/>YRS ASSOCIATE INIT 30 S MIN RHYTHM 04986 DANIA CARIAS ECG 1-3 9 EMERGENCY HALIE Negron LEADS SERVICES INTERPRET ATION & ASSOCIATE REPRT ON S RADEX 63430 [facility] HAND 9 Y Y MINIMUM 3 HOSPITAL HOSPITAL VIEWS NONINVASI 13617 UNIVERSIT UNIVERSIT VE 9 Y Y EAR/PULSE HOSPITAL HOSPITAL OXIMETRY SINGLE DETER Encounters Encounter Start End Date Code Location Performer Type Date [facility] - 5 5 [facility] 92565 CHAI IVONNE [facility] 5 5 MEDICAL GOGO T SERV MINUTES FOUNDATIO N OFFICE 72258 FERN JUAREZ [facility] 2 2 [facility] T HOSPITAL MINUTES EMERGENCY 99575 DANIA NAJERA 2 2 EMERGENCY EMERGENCY DEPARTMEN SERVICES SERVICES T VISIT HIGH/URGE NT SEVERITY HOSPITAL [facility] 2 2 [facility] DEPARTMEN INC T VISIT LOW/MODER SEVERITY EMERGENCY 32551 DANIA MILLS DEPT 0 0 EMERGENCY JAM VISIT SERVICES HIGH SEVERITY& THREAT FUNJ EMERGENCY 06741 FERN 0 0 [facility] DEPARTMEN INC T VISIT MODERATE SEVERITY HOSPITAL FERN - 0 0 [facility] T OFFICE 40799 ADEEL DENIS [facility] 0 0 DARRION DARRION T VISIT 15 MINUTES [facility]IT - 0 0 [facility] T OFF[facility] 56316 CHAI CHAVEZ [facility] 0 0 MEDICAL ROSELYN T VISIT SERV A 15 [facility] UNIVERSIT - 0 0 Y [facility] UNIVERSIT - 0 0 Y [facility]ERSIT - 9 9 [facility] 33513 [facility] 9 [facility] MEDICAL , ANNIKA T VISIT SERV 10 [facility]ERSIT - 9 9 [facility] T OFF[facility] 79140 CHAI ADDISON CONSULTAT 9 9 MEDICAL , ANNIKA ION SERV NEW/ESTAB FOUNDATIO PATIENT 40 MIN [facility]OSPITAL [facility]ERSIT - 9 9 Y [facility] T EMERGENCY 30006 CHAI GOLD, 9 9 MEDICAL [facility] SERV T VISIT FOUNDATIO MODERATE SEVERITY EMERGENCY 33293 [facility] 9 9 Y [facility] VISIT HIGH/URGE NT SEVERITY EMERGENCY 43197 DANIA CARIAS, DEPT 9 9 EMERGENCY [facility] VISIT SERVICES HIGH SEVERITY& ASSOCIATE THREAT S [facility] UNIVERSIT - 9 9 Y [facility] T
--- OUTSIDE RECORDS SUMMARY | 2017-05-31 16:53 | External Medical Summary Rpt ---
Author Author , JOSELUIS HUGGINS Address Unknown Phone [email or web address] Immunization Name Date Rout CVX Reac Dose Comm Prov Is Faci e tion ent ider Refu lity Give sed n Vari 02- 21 999 Hist H149 No H149 cell 6-20 oric a 12 al Info rmat ion - Sour ce Unsp ecif ied MCV4 02- 147 999 Hist H149 No H149 UF 6-20 oric 12 al Info rmat ion - Sour ce Unsp ecif ied Vari 01- 21 999 Hist H159 No H159 cell 6-20 oric A A a 02 al Info rmat ion - Sour ce Unsp ecif ied
--- OUTSIDE RECORDS SUMMARY | 2017-05-31 16:53 | External Medical Summary Rpt ---
Author Author , JOSELUIS HUGGINS Address Unknown Phone [email or web address] Immunization Name Date Rout CVX Reac Dose [...]
--- OUTSIDE RECORDS SUMMARY | 2017-05-31 16:53 | External Medical Summary Rpt ---
Author Author , JOSELUIS HUGGINS Address Unknown Phone Care Team Providers Care Forensic Photographer Name Role Phone VERITO ZIMMERMAN, Unavailable Unavailable VERITO ZIMMERMAN CHRISTINA L, Unavailable Unavailable ANGELO RIOS BRANDON T, Unavailable Unavailable NADIA MARKS, TERESITA Unavailable Unavailable GRE BRYSON, HARIGOVINDA Unavailable Unavailable R, BRYSON, HARIGOVINDA R NESHA ZENON, Unavailable Unavailable NESHA ZENON [facility] Unavailable Unavailable [facility] Unavailable Unavailable FOSTER MYRIAM, FOSTER Unavailable Unavailable JAM IVONNE KYLE Unavailable Unavailable [facility] Unavailable Unavailable CENTER, [facility] Unavailable Unavailable CENTER, [facility] Unavailable Unavailable INC, [facility] Unavailable Unavailable HOSPITAL, [facility], DAQUAN-CROATIAN, TAMIKO, Unavailable Unavailable [facility] Unavailable Unavailable IMAGING [facility], [facility] BLAINE PALACIOS, , Unavailable Unavailable [facility], [facility], Unavailable [facility]available [facility] MITCHELL KILLIAN, Unavailable Unavailable MITCHELL KILLIAN GRE, Unavailable Unavailable DANIA NAJERA GRE, Unavailable Unavailable DANIA GRE [facility] Unavailable Unavailable SERVICES, [facility] Unavailable Unavailable SERVICES, [facility] ANNIKA ADDISON, Unavailable Unavailable ANNIKA ADDISON JOHN M, Unavailable Unavailable HALIE CARIAS RONALD L, Unavailable Unavailable OLENA WILSON NICHOLS Unavailable Unavailable ADEEL GUEVARA Unavailable Unavailable LARRY URIAS Unavailable Unavailable JAM [id number], Unavailable Unavailable [id number] Unavailable Unavailable [id number] [address] [id number], [facility] [id number] [id number] [place], ROSELYN A, Unavailable Unavailable ROSELYN CHAVEZ MARIA, Unavailable Unavailable DELPHINE GOLD [facility], Unavailable Unavailable [facility] YAEL ROSE, Unavailable Unavailable YAEL ROSE [facility] Unavailable Unavailable #591, [facility] Purpose Continuity of Care Document - 08-04-2009 through 2016 Problems Code Diagnosis DOS Provider Status [id number] OTH 12-25-2014 [facility] INVOLVING [facility]OUNDATION INTERNAL FIXATION DEVICE V5489 OTHER 12-25-2014 [facility] AFTERCARE 51449 CLOSED 12-11-2014 [facility] FRACTURE SERVICES OTHER&UNSPE C PART BODY MANDIBLE 58847 CLOSED 12-10-2014 [facility] FRACTURE OF SERV MULTIPLE FOUNDATION SITES OF MANDIBLE 67373 JAW PAIN 12-09-2014 [facility] 67583 CLOSED 12-09-2014 [place] FRACTURE OF MEDICAL IMAGING ASS UNSPECIFIED SITE OF MANDIBLE 8028 OTHER 12-09-2014 [place] FACIAL MEDICAL BONES IMAGING ASS CLOSED FRACTURE 8082 CLOSED 12-09-2014 [place] FRACTURE OF MEDICAL PUBIS IM[facility]ING ASS 920 CONTUSION 12-09-2014 [place] OF FACE MEDICAL SCALP AND IMAGING ASS NECK EXCEPT EYE 80791 OTHER FOOT 01-05-2012 [place] [facility] AND [facility] 14391 PAIN IN 11-01-2011 [place] JOINT, MEDICAL FOREARM IM[facility]ING [facility] 54893 SPRAIN AND 11-01-2011 [facility] STRAIN OF [facility] UNSPECIFIED INC SITE OF WRIST 9593 INJURY 11-01-2011 [facility] OTHER&UNSPE EMERGENCY CIFIED SERVICES [facility]OW FOREARM&WRI ST 9599 INJURY 11-01-2011 [place] OTHER AND MEDICAL UNSPECIFIED IMAGING ASS UNSPECIFIED SITE V069 NEED PROPH 10-07-2011 [facility] VACCINATION HEALTH W/UNSPEC CENTER COMB VACCINE 30041 FEVER 06-18-2010 [place] UNSPECIFIED MEDICAL IMAGING ASS 36439 NAUSEA WITH 06-18-2010 [facility] VOMITING EMERGENCY SERVICES 60796 ABDOMINAL 06-18-2010 [facility] PAIN, EMERGENCY UNSPECIFIED SERVICES SITE 31272 ABDOMINAL 06-18-2010 [facility] PAIN, [facility] GENERALIZED INC 5368 DYSPEPSIA&O 06-13-2010 ADEEL MAIER THER SPEC DISORDERS FUNCTION STOMACH 3671 MYOPIA 06-10-2010 [facility] GRE 60782 SPRAIN AND 11-17-2009 [facility] STRAIN OF SERV INTERPHALAN FOUNDATIO GEAL OF HAND 91860 UNSPECIFIED 10-28-2009 [facility] DERANGEMENT OF HAND JOINT V5849 OTHER 10-28-2009 [facility] SPECIFIED SERV AFTERCARE FOUNDATIO FOLLOWING SURGERY V5412 AFTERCARE 10-03-2009 [facility] TRAUMATIC [facility] FRACTURE LOWER ARM 79608 OTHER ACUTE 08-20-2009 [facility] POSTOPERATI FOUND[facility] VE PAIN 16233 OTHER 08-20-2009 [place] [facility] CL[facility]ED SERV FRACTURES FOUNDATIO OF DISTAL END OF RADIUS 38820 CLOSED 08-18-2009 [place] FRACTURE OF OF [place] LOWER [facility] OF RADIUS WITH ULNA E8849 OTHER 08-04-2009 [facility] ACCIDENTAL SERV FALL FROM FOUNDATIO ONE LEVEL TO ANOTHER V537 FITTING AND 08-04-2009 [facility] ADJUSTMENT SERV OF FOUNDATIO ORTHOPEDIC DEVICE [...] Meni RENE No RENE 6-20 brett DELFINA DELIFNA ALCANTARA 12 occu CO CO CWY s [...] Procedure DOS Code Location Performer Comment ORTHOPANT 39539 [facility] 5 Y Y [facility] HOSPITAL ANESTHESI [address] [place] TERESITA A FACIAL 5 MEDICAL GRE BONES OR SERVICES SKULL NOS OPTX COMP 02106 [facility] YAEL 5 MEDICAL ROSE MANDIBULA SERV R FX [facility]AL [facility] GENERAL MANAGER FOUNDATIO APPR N W/INT FIXATION RADEX 40239 [place] NESHA FACIAL 5 MEDICAL ZENON BONES IMAGING COMPLETE ASS MINIMUM 3 VIEWS RADIOLOGI 24378 [place] NESHA C 5 MEDICAL ZENON EXAMINATI IMAGING ON ASS MANDIPLE PRTL <[address] [place] [address] [facility] 5 MEDICAL ZENON CIAL W/O IMAGING CONTRAST ASS MATERIAL ORTHOPANT 86597 [facility] OGRAM 5 MEDICAL MEDICAL IMAGING IMAGING ASS ASS WRIST L3908 [facility] HAND 2 ORTHOSIS EXT CONTROL COCK-UP PREFAB RADEX 97057 [facility] WRIST 2 [facility] COMPLETE INC INC MINIMUM 3 VIEWS MCV4 38035 [facility] MENACWY 2 [facility] CONJ VACC CENTER CENTER GRPS ACYW-135 IM USE NIXON 02400 [facility] VACCINE 2 [facility] LIVE [place] [address] [facility] AMYLASE 0 [place] [address] [facility] LIPASE 0 [facility] INC INC RADIOLOGI 23116 [place] NESHA C EXAM 0 MEDICAL ZENON CHEST 2 IMAGING VIEWS ASS FRONTAL&L ATERAL BLOOD 25997 [facility] COUNT 0 [facility] COMPLETE INC INC AUTO&AUTO DIFRNTL WBC URNLS DIP 80957 [facility] 0 [facility] STICK/TAB INC INC LET REAGENT AUTO MICROSCOP Y COMPREHEN 42464 [facility] SIVE 0 [facility] METABOLIC INC INC PANEL DETERMINA 79314 [facility] PITTMANALL TION 0 GRE GRE REFRACTIV E STATE OPHTH [address] [facility] 0 GRE GRE XM&EVAL COMPRE NEW PT 1/> VST WRIST L3807 [facility] HAND 0 FINGR ORTHOS W/O JNT PREFAB CSTM FIT APPLICATI 88770 [place] KATHY, ON CAST 0 MEDICAL ROSELYN ELBOW SERV A FINGER FOUNDATIO SHORT ARM INJECTION J1885 [facility] 0 Y Y KETOROLAC [facility] TROMETHAM INE PER 15 MG INJECTION J3010 [facility] FENTANYL 0 Y Y CITRATE [facility] 0.1 MG TDN 76648 [facility] TRNSPLJ/T 0 Y Y R [facility] FLXR/XTNS R F/ARM&/WR ST 1 EA TDN TR/TRNSPL 31014 [place] KATHY, TDN 0 MEDICAL ROSELYN CARP/MTCR SERV A PL HAND FOUNDATIO W/O FR GRF EA TDN SINGLE 57706 [place] CONSTANTIN, NERVE 0 MEDICAL MITCHELL C BLOCK SERV INJECTION FOUNDATIO ARM NERVE INJECTION J2405 [facility] 0 Y Y [facility] ON HCL PER 1 MG ANES 95545 [place] JULIANE, NERVE 0 MEDICAL ANGELO MUSCLE SERVICES L TDN FASCIA&BU RSA FOREARM WRIST INJECTION J0690 [facility] 0 Y Y CEFAZOLIN [facility] SODIUM 500 MG INJECTION J2795 [facility] 0 Y Y ROPIVACAGREAT [facility] NE HYDROCHLO RIDE 1 MG RINGERS J7120 [facility] LACTATE 0 Y Y INFUSION [facility] UP TO 1000 CC INJECTION J2250 [facility] 0 Y Y MIDAZOLAM [facility] HCL PER 1 MG RADEX 82022 [facility] WRIST 2 0 Y Y [facility] INJE[facility] J2550 [facility] 9 Y Y [facility] INE HCL UP TO 50 MG OPTX DSTL 02371 [place] SELINA, RADL 9 MEDICAL NADIA T X-ARTIC SERV FX/EPIPHY FOUNDATIO SL SEP INJECTION 83012 [place] KATIE, 9 MEDICAL OLENA L ANESTHETI SERV C AGENT FOUNDATIO AXILLARY NERVE FLUOROSCO 76812 [facility] PY SPX >1 9 Y Y HOUR [facility] PHYS/QHP TIME INJECTION J0170 [facility] 9 Y Y ADRENALIN [facility] EPINEPHRI NE UP 1 ML AMPULE INJECTION J0330 [facility] 9 Y Y SUCCINYLC [facility] HOLINE CHLORIDE UP TO 20 MG INJECTION J2405 [facility] 9 Y Y [facility] ON HCL PER 1 MG ANES 80477 [place] TAMIKO, ARTHRS/EN 9 MEDICAL DAUQAN-CROATIAN DSCPY SERVICES DSTL RADIUS ULNA/WRIS T/HAND INJECTION J3010 [facility] FENTANYL 9 Y Y CITRATE [facility] 0.1 MG INITIAL 72460 CHAI WILSON, INPATIENT 9 MEDICAL OLENA L CONSULT SERV NEW/ESTAB FOUNDATIO PT 40 MIN INJECTION J2270 [facility] MORPHINE 9 Y Y SULFATE [facility] UP TO 10 MG INJECTION J2795 [facility] 9 Y Y ROPIVACAI [facility] NE HYDROCHLO RIDE 1 MG INJECTION J2250 [facility] 9 Y Y MIDAZOLAM [facility] HCL PER 1 MG INJECTION J0460 [facility] ATROPINE 9 Y Y SULFATE [facility] UP TO 0.3 MG INJECTION J0690 [facility] 9 Y Y CEFAZOLIN [facility] SODIUM 500 MG RADEX 60757 [facility] ELSIE, WRIST 2 9 Y OF VERITO VIEWS [facility] RADEX 86273 [facility] WRIST 2 9 Y Y [facility] APPLICATI 60030 CHAI ADDISON ON CAST 9 MEDICAL , ANNIKA SHOULDER SERV HAND LONG FOUNDATIO ARM RADEX 30169 CHAI PHILIP, WRIST 9 MEDICAL BLAINE G COMPLETE SERV MINIMUM 3 FOUNDATIO VIEWS THER 31918 [facility] PROPH/DX 9 Y Y NJX IV [facility] PUSH SINGLE/1S T SBST/DRUG CLTX DSTL 01355 DANIA CARIAS RDL 9 EMERGENCY HALIE Negron FX/EPIPHY SERVICES SL SEP W/MANJ ASSOCIATE WHEN PERF S RADEX 21483 CHAI PHILIP, FOREARM 2 9 MEDICAL BLAINE G VIEWS SERV FOUNDATIO RADEX 22357 [facility] WRIST 9 Y Y [facility] MINIMUM 3 VIEWS MODERATE 31998 GLEACIO SALCEDOATJ 9 EMERGENCY HALIE Negron SAME SERVICES PHYS/QHP 5/>YRS ASSOCIATE INIT 30 S MIN RHYTHM 85693 DANIA CARIAS ECG 1-3 9 EMERGENCY HALIE Negron LEADS SERVICES INTERPRET ATION & ASSOCIATE REPRT ON S RADEX 69367 [facility] HAND 9 Y Y MINIMUM 3 HOSPITAL HOSPITAL VIEWS NONINVASI 76767 UNIVERSIT UNIVERSIT VE 9 Y Y EAR/PULSE HOSPITAL HOSPITAL OXIMETRY SINGLE DETER Encounters Encounter Start End Date Code Location Performer Type Date [facility] UNIVERSIT - 5 5 Y [facility] T OFFICE 15222 CHAI IVONNE [facility] 5 5 MEDICAL GOGO T SERV MINUTES FOUNDATIO N OFFICE 40595 FERN JUAREZ [facility] 2 2 [facility] T HOSPITAL MINUTES EMERGENCY 78656 DANIA NAJERA 2 2 EMERGENCY EMERGENCY DEPARTMEN SERVICES SERVICES T VISIT HIGH/URGE NT SEVERITY HOSPITAL FERN - 2 2 [facility] 73334 FERN 2 2 [facility] DEPARTMEN INC T VISIT LOW/MODER SEVERITY EMERGENCY 11215 DANIA MILLS DEPT 0 0 EMERGENCY JAM VISIT SERVICES HIGH SEVERITY& THREAT FUNJ EMERGENCY 46211 FERN 0 0 [facility] DEPARTMEN INC T VISIT MODERATE SEVERITY HOSPITAL FERN - 0 0 [facility] 45978 ADEEL DENIS [facility] 0 0 DARRION DARRION T VISIT 15 MINUTES [facility] UNIVERSIT - 0 0 Y [facility] T OFFICE 07442 CHAI CHAVEZ [facility] 0 0 MEDICAL ROSELYN T VISIT SERV A 15 [facility] UNIVERSIT - [address] [facility] UNIVERSIT - [address] [facility] UNIVERSIT - 9 9 Y [facility] T OFFICE 15053 [facility] 9 9 MEDICAL , ANNIKA T VISIT SERV 10 [facility] UNIVERSIT - 9 9 Y [facility] T OFFICE 79113 CHAI ADDISON CONSULTAT 9 9 MEDICAL , ANNIKA ION SERV NEW/ESTAB FOUNDATIO PATIENT 40 MIN HOSPITAL UNIVERSIT - 9 9 Y [facility] T EMERGENCY 98118 [facility] GOLD, 9 9 MEDICAL [facility] T VISIT FOUNDATIO MODERATE SEVERITY EMERGENCY 31667 [facility] 9 9 Y [facility] VISIT HIGH/URGE NT SEVERITY EMERGENCY 41973 DANIA CARIAS, DEPT 9 9 EMERGENCY [facility] VISIT SERVICES HIGH SEVERITY& ASSOCIATE THREAT S [facility] UNIVERSIT - 9 9 Y [facility] T
--- OUTSIDE RECORDS SUMMARY | 2017-05-31 16:53 | External Medical Summary Rpt ---
[...] IS Plasma CONSIDERE D LEGALLYIN TOXICATED UNDER [place] [employer] LAW.
== END 2017-05-07 00:07 | disposition left against medical advice (07) ==
LOC: ER 23:37
PROVIDERS: Emergency Medicine
DX: Z53.29 Procedure and treatment not carried out because of patient's decision for other reasons (principal)